=== PATIENT | male | born 1970 | race Caucasian/White ===

== ENCOUNTER 2022-02-20 06:48 | Day surgery (SDC) | payer SELFPAY ==
[2022-02-19 13:30] VITALS: BMI 24.7
--- NOTE | 2022-02-20 07:21 | ANES.PREANE2 ---
Pre-Anesthetic Assessment Height/Weight: Height 1.8 m Weight 80.286 kg Operation Date: 02/20/22 08:15 Proposed Procedures p Inguinal Hernia Repair(Right) - William Wade MD Familial anesthetic complications: NOne Was Beta Ana taken within 24 hours: N/A Was Clonidine taken within 24 hours: N/A Last intake: > 8hrs Social No alcohol and No tobacco Exam alert, oriented x 3, clear to auscultation bilaterally and regular rate & rhythm Airway Mallampati: Class II Dentition: full Pulmonary None reported CV/HEM None reported None reported Hepatic None reported GI None reported Metabolic None reported Musc/skel None reported Neuropsych None reported Anesthetic Plan ASA status: 1 Anesthesia: MAC Risk of > 500 ml blood loss (7ml/kg in children): No Medications/Allergies Home Medications Medication Instructions Recorded Confirmed Last Taken Type tamsulosin 0.4 mg capsule (Flomax) 0.4 mg PO DAILY 02/19/22 02/20/22 02/19/22 History Allergies Allergy/AdvReac Type Severity Reaction Status Date / Time No Known Allergies Allergy Verified 02/19/22 13:26 [facility] Anesthesia Family History (Updated 02/19/22 @ 09:45 by Dodie L [employer]) Other Heart disease Hypertension Social History (Updated 02/19/22 @ 09:45 by [employer]) Smoking and tobacco status: never smoked Data Anesthesia Cardiac Studies: No Data to Display
[2022-02-20] MEDS: sodium chloride 0.9% 1,000 ML 30 ML IV (07:30)
--- NOTE | 2022-02-20 07:34 | W.PM.OPSUD ---
Surgery/Procedure H&P Update DATE OF PROCEDURE: February 20, 2022 DATE H&P PERFORMED: 02/11/22 H&P UPDATE INFORMATION: No changes to prior documentation PREOP DIAGNOSIS: Right inguinal hernia. PLANNED PROCEDURE: Operation Date: 02/20/22 08:15 Proposed Procedures p Inguinal Hernia Repair(Right) - William Wade MD
--- NOTE | 2022-02-20 08:35 | PM.OP ---
Operative Report Date of procedure: February 20, 2022 Pre-op diagnosis: Preop Diagnosis Right inguinal hernia. Post-op diagnosis: Right indirect inguinal hernia. Procedure done: Repair of right inguinal hernia with mesh. Specimens removed/disposition: None sent. Surgeon: General Surgery William Wade MD Estimated blood loss: 5 mL. Complications: None. Procedure: The patient was brought to the operating room and was placed in a supine position on the operating room table. A monitored anesthetic was induced. The right inguinal region was prepped and draped in a sterile fashion. A combination of 1% lidocaine and 0.5% bupivacaine with 1-200,000 parts epinephrine was used for local anesthesia throughout the procedure. A transverse incision was carried out above the level of the pubic tubercle. Cautery was used to divide the subcutaneous tissue down to the external oblique aponeurosis which was incised in parallel with its fibers over the inguinal canal. The spermatic cord was looped with a Vasquez drain. An indirect hernia was found at the internal ring. A small amount of preperitoneal fat was found coming through the internal ring and this was freed down to the internal ring and was excised. A hernia sac was identified and was carefully freed from the cord structures down to the internal ring and the hernia sac was reduced. A medium mesh plug was used to hold the hernia sac in a reduced position and was held in place with a suture of 0 Prolene that was used to connect the conjoined area medially to the reflecting edge of Poupart's ligament laterally. The onlay patch was anchored at the tubercle with a suture of 0 Prolene and was laid along the inguinal canal floor, allowing the cord structures to pass through the precut hole in the mesh. The two wings of mesh were sewn to each other above the level of the internal ring with a suture of 0 Prolene. The external oblique aponeurosis was closed over the top of the cord using a running suture of 3-0 Vicryl. The wound was irrigated with saline. The subcutaneous tissue was brought together with a simple suture of 3-0 Vicryl and the skin was approximated using a running subcuticular suture of 3-0 Vicryl. Benzoin and Steri-Strips were placed over the incision and a sterile bandage followed. The patient was taken to the recovery area in stable condition postoperatively.
[2022-02-20 08:40] VITALS: BP 116/65; PULSE 70; RESP 16; TEMP 36.4; O2SAT 96
[2022-02-20 08:45] VITALS: BP 129/65; PULSE 65; RESP 16; O2SAT 99
[2022-02-20 08:50] VITALS: BP 121/65; PULSE 70; RESP 18; O2SAT 98
[2022-02-20 08:55] VITALS: BP 110/69; PULSE 64; RESP 16; TEMP 36.3; O2SAT 97
[2022-02-20 09:00] VITALS: BP 124/77; PULSE 65; RESP 18; O2SAT 97
[2022-02-20] MEDS: acetaminophen 500 mg Tablet 1000 MG PO (09:30)
[2022-02-20 09:51] VITALS: BP 131/81; PULSE 56; RESP 18; O2SAT 99
--- NOTE | 2022-02-20 09:52 | SUR.PHASEII ---
0915: PATIENT REPORTS HEADACHE AND REQUESTS TYLENOL
--- NOTE | 2022-02-20 14:31 | ANE.PACU2 ---
Inpatient post-anesthesia follow up: Airway intact: Yes Vital signs: Temperature 97.4 F Pulse Rate 56 Respiratory Rate 18 Blood Pressure 131/81 Pulse Oximetry 99 Oxygen Delivery Me thod Room Air Oxygen Flow Rate 8 Fraction of Inspir ed Oxygen Hydration adequate: Yes Nausea and vomiting: No Pain level: 2 Mental status: Baseline
== END 2022-02-20 10:00 | disposition home or self-care (01) ==
PROVIDERS: Visit Provider Surgery
PROC: (CPT 49505; principal; 2022-02-20 08:05)
DX: K40.90 Unilateral inguinal hernia, without obstruction or gangrene, not specified as recurrent (principal); N40.0 Benign prostatic hyperplasia without lower urinary tract symptoms
CPT/HCPCS: 49505; C1781; J0690; J1100; J1200; J2250; J2405; J2704; J3010; J3490; J7030